=== PATIENT | female | born 1960 | race Caucasian/White ===

== ENCOUNTER 2017-06-06 10:42 | Emergency (ER) | payer BC ==
[2017-06-06 11:41] VITALS: BP 116/65
--- NOTE | 2017-06-06 12:05 | UC ---
Upper Extremity HPI - HPI Summary HPI Summary: pain left ribs x 3 weeks s/p left shoulder RC surgery 3 weeks ago has been having left side rib pain since, increase pain with movement, and taking a deep breath no know injury no fever, no chills, no sob - History of Current Complaint Chief Complaint: UCGeneralIllness Stated Complaint: LFT SIDE RIB AREA PAIN Time Seen by Provider: 06/06/17 11:35 Hx Obtained From: Patient ?: No Onset/Duration: Gradual Onset, Lasting Weeks - 3, Still Present Severity Initially: Moderate Severity Currently: Moderate Pain Intensity: 8 Location Of Pain: Is Discrete @ - left side ribs Character: Aching Aggravating Factor(s): Movement, Lifting, Flexion, Extension Alleviating Factor(s): Nothing Associated Signs And Symptoms: Negative: Swelling, Redness, Bruising, Fever, Weakness, Numbness/Tingling - Allergies/Home Medications Allergies/Adverse Reactions: Allergies Allergy/AdvReac Type Severity Reaction Status Date / Time Penicillins Allergy Vomiting Verified 06/06/17 11:33 Home Medications: Home Medications Cholecalciferol TAB* [Vitamin D TAB*] 50,000 units PO WEEKLY 06/06/17 [History Confirmed 06/06/17] Depression Medication 100 mg PO DAILY 06/06/17 [History] Lisinopril TAB* [Prinivil TAB*] 10 mg PO DAILY 06/06/17 [History Confirmed 06/06] Pravastatin (NF) [Pravachol (NF)] 10 mg PO DAILY 06/06/17 [History Confirmed 04/25] Sertraline* [Zoloft*] 100 mg PO DAILY 06/06/17 [History Confirmed 06/06/17] PMH/Surg Hx/FS Hx/Imm Hx Cardiovascular History: Hypertension - Surgical History Surgical History: Yes Surgery Procedure, Year, and Place: L RCT repair. back 2010. L TKA. [facility]. hernia - Family History Known Family History: Positive: Hypertension - Social History Alcohol Use: None Substance Use Type: None Smoking Status (MU): Never Smoked Tobacco Review of Systems Constitutional: Negative Skin: Negative Eyes: Negative ENT: Negative Respiratory: Negative Is Patient Immunocompromised?: No All Other Systems Reviewed And Are Negative: Yes Physical Exam Triage Information Reviewed: Yes Appearance: Well-Appearing, Pain Distress, Obese Vital Signs: Initial Vital Signs Temp 98.5 F 06/06/17 11:35 Pulse 65 06/06/17 11:35 Resp 20 06/06/17 11:35 BP 116/65 06/06/17 11:35 Pulse Ox 98 06/06/17 11:35 Vital Signs Reviewed: Yes Eyes: Positive: Conjunctiva Clear ENT: Positive: Normal ENT inspection, Hearing grossly normal, Pharynx normal Neck: Positive: Supple, Nontender, No Lymphadenopathy Respiratory: Positive: Chest non-tender, Lungs clear, Normal breath sounds Cardiovascular: Positive: RRR, No Murmur, Pulses Normal Bowel Sounds: Positive: Present Musculoskeletal: Positive: Other: - left side ribs : no swelling , no erythema or bruising , + tenderenss, pain with movementi Upper Extremity Course/Dx - Differential Dx/Diagnosis Provider Diagnoses: left side rib pain Discharge - Discharge Plan Condition: Stable Disposition: HOME Prescriptions: Naproxen [Naproxen 500 mg] 500 mg PO BID #20 tab Patient Education Materials: Muscle Strain (DC), Rib Contusion (ED) Referrals: Leonel Jackson NP [Primary Care Provider] - 2 Weeks
--- NOTE | 2017-06-06 12:12 | RAD ---
Indication: Left-sided chest pain. 3 views of the left chest including dual energy PA views demonstrate limited evaluation of the lower limits due to body habitus. No definite fracture of the visualized ribs is noted. No pneumothorax is noted. IMPRESSION: No definite fractures identified. The study is limited due to patient's body habitus especially of the lower ribs.
== END 2017-06-06 12:33 | disposition home or self-care (01) ==
LOC: UCCORT 10:42
DX: R07.81 Pleurodynia (principal); Z88.0 Allergy status to penicillin; I10 Essential (primary) hypertension
CPT/HCPCS: 99212; G0463

== ENCOUNTER 2017-09-04 11:23 | Emergency (ER) | payer SELFPAY ==
[2017-09-04 11:35] VITALS: BP 134/82
[2017-09-04] MEDS ORDERED: Acetaminophen TAB* 325 MG PO ONE (11:43)
--- NOTE | 2017-09-04 11:43 | UC ---
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 she is c/o pain over the elbow and notes it goe down the arm when she moved the elbow. she denies numd/tingling and weakness. - History of Current Complaint Stated Complaint: WC/LEFT ELBOW COMP Time Seen by Provider: 09/04/17 11:30 Hx Obtained From: Patient Onset/Duration: Sudden Onset Aggravating Factor(s): Movement Alleviating Factor(s): Nothing - Risk Factors Septic Arthritis Risk Factor: Negative - Allergies/Home Medications Allergies/Adverse Reactions: Allergies Allergy/AdvReac Type Severity Reaction Status Date / Time Penicillins Allergy Vomiting Verified 06/06/17 11:33 Home Medications: Home Medications quiNIDine SULFATE TAB* 100 mg PO DAILY 09/04/17 [History Confirmed 09/04/17] PMH/Surg Hx/FS Hx/Imm Hx Endocrine History: Dyslipidemia Cardiovascular History: Hypertension Psychological History: Depression - Surgical History Surgical History: Yes Surgery Procedure, Year, and Place: L RCT repair. back 2010. L TKA. [place]. hernia - Family History Known Family History: Positive: Hypertension - Social History Occupation: Employed Full-time Lives: With Family Alcohol Use: None Substance Use Type: None Smoking Status (MU): Never Smoked Tobacco - Immunization History Vaccination Up to Date: Yes Review of Systems Constitutional: Negative Skin: Negative Eyes: Negative ENT: Negative Respiratory: Negative Cardiovascular: Negative Gastrointestinal: Negative Genitourinary: Negative Motor: Negative Neurovascular: Negative Musculoskeletal: Other: - pain over tip of left elbow Neurological: Negative Psychological: Negative Is Patient Immunocompromised?: No All Other Systems Reviewed And Are Negative: Yes Physical Exam Triage Information Reviewed: Yes Appearance: Well-Appearing Vital Signs Reviewed: Yes Eyes: Positive: Conjunctiva Clear ENT: Positive: Normal ENT inspection Neck: Positive: Supple Respiratory: Positive: Lungs clear, Normal breath sounds Cardiovascular: Positive: RRR, No Murmur Abdomen Description: Positive: Nontender, No Organomegaly, Soft Bowel Sounds: Positive: Present Musculoskeletal: Positive: Other: - LUE: slight bruising with a small superficial abrasion over the olecranon process that is tender. rest of LUE unremarkable. LUE has full s/v/m function. Neurological: Positive: Alert Psychological: Positive: Age Appropriate Behavior Skin Exam: Normal Diagnostics - Radiology No standard instances Xray Interpretation: No Acute Changes Radiology Interpretation Completed By: Radiologist - L elbow Upper Extremity Course/Dx - Course Course Of Treatment: no concern for infection. no fx or dislocation - Differential Dx/Diagnosis Provider Diagnoses: contusion left elbow. superficial abrasion left elbow Discharge - Sign-Out/Discharge Documenting (check all that apply): Discharge/Admit/Transfer - Discharge Plan Condition: Stable Disposition: HOME Patient Education Materials: Contusion in Adults (ED), Abrasion (ED) Forms: *Work Release Referrals: Leonel Jackson NP [Primary Care Provider] - If Needed - Billing Disposition and Condition Condition: STABLE Disposition: HOME
--- NOTE | 2017-09-04 12:13 | RAD ---
INDICATION: Posterior LEFT elbow pain following injury today. COMPARISON: May 13, 2015 TECHNIQUE: AP, lateral, and oblique views LEFT elbow. REPORT: Normal articular alignment. Negative for fat pad displacement to indicate joint effusion. No cortical disruption or suspicious trabecular irregularity to suggest fracture. Small chronic enthesophyte at the lateral epicondyles. Unremarkable soft tissue contours accounting for body habitus. IMPRESSION: 1. Negative for joint effusion, fracture, or malalignment. 2. Stigmata of chronic lateral epicondylitis.
== END 2017-09-04 12:23 | disposition home or self-care (01) ==
LOC: UCCORT 11:23
DX: S50.312A Abrasion of left elbow, initial encounter (principal); W22.03XA Walked into furniture, initial encounter; Y93.89 Activity, other specified; Y92.9 Unspecified place or not applicable; Z88.0 Allergy status to penicillin; I10 Essential (primary) hypertension
CPT/HCPCS: 99212; A9270-GY; G0463

== ENCOUNTER 2019-02-27 12:07 | Emergency (ER) | payer BC ==
--- OUTSIDE RECORDS SUMMARY | 2019-02-27 12:25 | XMS REPORT | Continuity of Care Document ---
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 Onset: 10/22/2017 tendon(s) of the rotator cuff of right shoulder, subsequent encounter Shoulder joint pain Dwight Danielle M.D. Onset: 10/08/2017 Full thickness rotator cuff tear Dwight Danielle M.D. Onset: 05/02/2017 Adhesive capsulitis of shoulder Dwight Danielle M.D. Onset: 03/21/2017 Disorder of shoulder Dwight Danielle M.D. Onset: 12/17/2016 Localized, primary osteoarthritis Gayle Benedict PA Onset: 02/02/2016 Social History Type Date Description Comments Sex Unknown Tobacco Use Start: Unknown Never Smoked Cigarettes ETOH Use Denies alcohol use Tobacco Use Start: Unknown Patient has never smoked Recreational Drug Use Never Used Drugs Smoking Status Reviewed: 02/19/19 Patient has never smoked Allergies, Adverse Reactions, Alerts Active Allergies Reaction Severity Comments Date Penicillin nausea 04/04/2012 Medications Active Medications SIG Qnty Indications Ordering Provider Date Quetiapine Fumarate 1 tab by mouth Unknown once daily 100mg Tablets Sertraline HCL 1 tab by mouth Zehra Jackson 100mg once daily SAÚL Barrera Tablets Pravastatin Sodium 1 by mouth every Unknown 20mg day Tablets Desonide as directed prn Unknown 0.05% Lotion Proventil HFA as directed prn Unknown 108(90Base) mcg/Act Aerosol Omeprazole Take One Capsule Unknown 20mg By Mouth Twice A Capsules DR Day Lisinopril-Hydrochlor 1 by mouth every Unknown othiazide day 20-25mg Tablets Vitamin D Take One Capsule Unknown (Ergocalciferol) By Mouth Every 1.25mg Week (66305 Ut) Capsules Medications Administered in Office Medication SIG Qnty Indications Ordering Provider Date Euflexxa 2mL prefilled syringe Joana Delcid MD 02/19/2019 Injection Depomedrol 40mg/1cc Joana eDlcid MD 02/05/2019 (methylprednisolone acetate) Injection Depomedrol 40mg/1cc Joana Delcid MD 12/04/2018 (methylprednisolone acetate) Injection Depomedrol 40mg/1cc Joana Delcid MD 08/27/2018 (methylprednisolone acetate) Injection Methylprednisolone acetate Skyla Jj 10/19/2016 (Depomedrol) 80mg injection RPAC Injection Euflexxa 2mL prefilled syringe Gayle Benedict PA 02/17/2016 Injection Euflexxa 2mL prefilled syringe Gayle Benedict PA 02/10/2016 Injection Euflexxa 2mL prefilled syringe Gayle Benedict PA 02/02/2016 Injection Immunizations Description No Information Available Vital Signs Date Vital Result Comment 02/19/2019 2:02pm BP Systolic Sitting Left Arm 121 mmHg BP Diastolic Sitting Left Arm 70 mmHg Heart Rate 64 /min 02/05/2019 2:07pm BP Systolic Sitting Left Arm 139 mmHg BP Diastolic Sitting Left Arm 88 mmHg Heart Rate 68 /min Results Description No Information Available Procedures Date Code Description Status 02/19/2019 Asp./Injection major joint Completed 02/05/2019 Asp./Injection major joint Completed 12/04/2018 60687 X-Ray Knee Complete W/Obliques & Tunnel And/Or Standing Completed Views 12/04/2018 Asp./Injection major joint Completed 10/23/2018 45824 Radiology, Knee 3 Views Completed 08/27/2018 Asp./Injection major joint Completed Medical Devices Description No Information Available Encounters Type Date Location Provider Dx Diagnosis Office Visit 02/19/2019 Orthopaedic Office Joana Delcid, M17.0 Bilateral primary 2:15p osteoarthritis of knee Office Visit 02/05/2019 Orthopaedic Office Joana Delcid, M17.0 Bilateral primary 2:00p osteoarthritis of knee M75.121 Complete rotatr-cuff tear/ruptr of r shoulder, not trauma Office Visit 12/04/2018 2:15p [facility] Farhana M75.41 Impingement Office MD Joana syndrome of right shoulder M17.0 Bilateral primary osteoarthritis of knee M17.11 Unilateral primary osteoarthritis, right knee Office Visit 10/23/2018 2:15p Ania Delcid M75.41 Impingement Office MD Joana syndrome of right shoulder M19.011 Primary osteoarthritis, right shoulder M75.121 Complete rotatr-cuff tear/ruptr of r shoulder, not trauma M25.562 Pain in left knee Office Visit 08/27/2018 [facility] M75.121 Complete 1:30p Office MD Joana rotatr-cuff tear/ruptr of r shoulder, not trauma M75.41 Impingement syndrome of right shoulder M19.011 Primary osteoarthritis, right shoulder X50.9xxA Other and unspecified ovrexrtn or strnous move/pstr, init Assessments Date Code Description Provider 02/19/2019 M17.0 Bilateral primary osteoarthritis of knee Joana Delcid MD 02/05/2019 M17.0 Bilateral primary osteoarthritis of knee Joana Delcid MD 02/05/2019 M75.121 Complete rotator cuff tear or rupture of right Joana Delcid MD shoulder, not 12/04/2018 M75.41 Impingement syndrome of right shoulder Joana Delcid MD 12/04/2018 M17.0 Bilateral primary osteoarthritis of knee Joana Delcid MD 12/04/2018 M17.11 Unilateral primary osteoarthritis, right knee Joana Delcid MD 10/23/2018 M75.41 Impingement syndrome of right shoulder Joana Delcid MD 10/23/2018 M19.011 Primary osteoarthritis, right shoulder Joana Delcid MD 10/23/2018 M75.121 Complete rotator cuff tear or rupture of right Joana Delcid MD shoulder, not 10/23/2018 M25.562 Pain in left knee Joana Delcid MD 08/27/2018 M75.121 Complete rotator cuff tear or rupture of right Joana Delcid MD shoulder, not 08/27/2018 M75.41 Impingement syndrome of right shoulder Joana Delcid MD 08/27/2018 M19.011 Primary osteoarthritis, right shoulder Joana Delcid MD 08/27/2018 X50.9xxA Other and unspecified ovrexrtn or strnous Joana Delcid MD move/pstr, init Plan of Treatment Future Appointment(s):03/04/2019 2:15 pm - Joana Delcid MD at [facility]opa[facility] [id number]/26/2019 2:15 pm - Joana Delcid MD at [facility] [id number]/19/2019 2:15 pm - Joana Delcid MD at [facility] [id number]/19/2019 - Joana Delcid, MDM17.0 Bilateral primary osteoarthritis of knee Functional Status Functional Condition Comment Date Status Glasses Active Mental Status Description No Information Available Referrals Description No Information Available
--- OUTSIDE RECORDS SUMMARY | 2019-02-27 12:25 | XMS REPORT | Continuity of Care Document ---
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 Problems Active Problems Provider Date Benign neoplasm [...] Use Never Used Drugs Smoking Status Reviewed: 02/26/19 Patient has never smoked Allergies, Adverse Reactions, [...] Unknown (Ergocalciferol) By Mouth Every 1.25mg Week (69967 Ut) Capsules Medications Administered in Office Medication SIG Qnty Indications Ordering Provider Date Euflexxa 2mL prefilled syringe Joana Delcid MD 02/26/2019 Injection Euflexxa 2mL prefilled syringe Joana Delcid MD 02/19/2019 Injection Depomedrol 40mg/1cc Joana Delcid MD 02/05/2019 (methylprednisolone acetate) Injection Depomedrol 40mg/1cc Joana Delcid MD 12/04/2018 (methylprednisolone acetate) Injection Depomedrol 40mg/1cc Joana Delcid MD 08/27/2018 (methylprednisolone acetate) Injection Methylprednisolone acetate Skyla Jj, 10/19/2016 (Depomedrol) 80mg injection RPAC Injection Euflexxa 2mL prefilled syringe Gayle Benedict PA 02/17/2016 Injection Euflexxa 2mL prefilled syringe Gayle Benedict PA 02/10/2016 Injection Euflexxa 2mL prefilled syringe Gayle Benedict PA 02/02/2016 Injection Immunizations Description No Information Available Vital Signs Date Vital Result Comment 02/26/2019 2:07pm BP Systolic Sitting Left Arm 135 mmHg BP Diastolic Sitting Left Arm 71 mmHg Heart Rate 71 /min 02/19/2019 2:02pm BP Systolic Sitting Left Arm 121 mmHg BP Diastolic Sitting Left Arm 70 mmHg Heart Rate 64 /min Results Description No Information Available Procedures Date Code Description Status 02/26/2019 Asp./Injection major joint Completed 02/19/2019 Asp./Injection major joint Completed 02/05/2019 Asp./Injection major joint Completed 12/04/2018 73243 X-Ray Knee Complete W/Obliques & Tunnel And/Or Standing Completed Views 12/04/2018 Asp./Injection major joint Completed 10/23/2018 05698 Radiology, Knee 3 Views Completed 08/27/2018 23081 Asp./Injection major joint Completed Medical Devices Description No Information Available Encounters Type Date Location Provider Dx Diagnosis Office Visit 02/26/2019 Orthopaedic Office Joana Delcid, M17.0 Bilateral primary 2:15p MD osteoarthritis of knee Office Visit 02/19/2019 Orthopaedic Office Joana Delcid, M17.0 Bilateral primary 2:15p osteoarthritis of knee Office Visit 02/05/2019 Orthopaedic Office Joana Delcid, M17.0 Bilateral primary 2:00p MD osteoarthritis of knee M75.121 Complete rotatr-cuff tear/ruptr [...] move/pstr, init Assessments Date Code Description Provider 02/26/2019 M17.0 Bilateral primary osteoarthritis of knee Joana Delcid MD 02/19/2019 M17.0 Bilateral primary osteoarthritis of knee Joana Delcid MD 02/05/2019 M17.0 Bilateral primary osteoarthritis of knee Joana Delcid MD 02/05/2019 M75.121 Complete rotator cuff tear or rupture of right Joana Delcdi MD shoulder, not 12/04/2018 M75.41 Impingement syndrome [...] MD move/pstr, init Plan of Treatment Future Appointment(s):03/19/2019 2:15 pm - Joana Delcid MD at Orthopaedic Office Functional Status Functional Condition Comment Date Status Glasses Active Mental Status Description No Information Available Referrals Description No Information Available
--- OUTSIDE RECORDS SUMMARY | 2019-02-27 12:25 | XMS REPORT | Continuity of Care Document ---
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 Problems Active Problems Provider Date Benign neoplasm [...] Use Never Used Drugs Smoking Status Reviewed: 02/05/19 Patient has never smoked Allergies, Adverse Reactions, [...] Unknown (Ergocalciferol) By Mouth Every 1.25mg Week (30538 Ut) Capsules Medications Administered in Office Medication SIG Qnty Indications Ordering Provider Date Depomedrol 40mg/1cc Joana Delcid MD 02/05/2019 (methylprednisolone acetate) Injection Depomedrol 40mg/1cc Joana Delcid MD 12/04/2018 (methylprednisolone acetate) Injection Depomedrol 40mg/1cc Joana Delcid MD 08/27/2018 (methylprednisolone acetate) Injection Methylprednisolone acetate Skyla Jj 10/19/2016 (Depomedrol) 80mg injection [facility] Injection Euflexxa 2mL prefilled syringe Gayle Benedict PA 02/17/2016 Injection Euflexxa 2mL prefilled syringe Gayle Benedict PA 02/10/2016 Injection Euflexxa 2mL prefilled syringe Gayle Benedict PA 02/02/2016 Injection Immunizations Description No Information Available Vital Signs Date Vital Result Comment 02/05/2019 2:07pm BP Systolic Sitting Left Arm 139 mmHg BP Diastolic Sitting Left Arm 88 mmHg Heart Rate 68 /min 12/04/2018 2:05pm BP Systolic 106 mmHg BP Diastolic 72 mmHg Body Temperature 97.1 F Heart Rate 62 /min Height 65 inches 5'5" Weight 279.00 lb BMI (Body Mass Index) 46.4 kg/m2 BSA (Body Surface Area) 2.28 m2 Leander body weight in kilograms 57 kg O2 % BldC Oximetry 96 % Results Description No Information Available Procedures Date Code Description Status 12/04/2018 76609 X-Ray Knee Complete W/Obliques & Tunnel And/Or Standing Completed Views 12/04/2018 Asp./Injection major joint Completed 10/23/2018 66068 Radiology, Knee 3 Views Completed 08/27/2018 Asp./Injection major joint Completed Medical Devices Description No Information Available Encounters Type Date Location Provider Dx Diagnosis Office Visit 12/04/2018 Orthopaedic Office Joana Delcid, M75.41 Impingement 2:15p syndrome of right shoulder M17.0 Bilateral primary osteoarthritis of knee M17.11 Unilateral primary osteoarthritis, right knee Office Visit 10/23/2018 2:15p Orthopaedic Farhana M75.41 Impingement Office MD [...] move/pstr, init Assessments Date Code Description Provider 02/05/2019 M17.0 Bilateral primary osteoarthritis of knee [...] Delcid MD move/pstr, init Plan of Treatment 02/05/2019 - Joana Delcid, MDM17.0 Bilateral primary osteoarthritis of kneeM75.121 Complete rotator cuff tear or rupture of right shoulder, notNew Therapy:Physical/Occupational Therapy Functional Status Functional Condition Comment Date Status Glasses Active Mental Status Description No Information Available Referrals Description No Information Available
[2019-02-27 12:49] VITALS: BP 114/59
--- NOTE | 2019-02-27 13:36 | UC ---
Back Pain HPI - HPI Summary HPI Summary: Patient is a 58yo female presenting with for "severe lower back pain" x6 days. Patient states the back pain is 10/10 when lying down at night and she cannot sleep. States it its worse with movement while lying down as well. States better when sitting, standing, and ambulating but still rates pain 7/10. Patient states pain is in lower middle back and radiate outward to both sides. Denies radiating up or down. Denies incontinence. Denies fevers. Notes chills at times. Denies urinary symptoms. Denies n/v. Denies numbness and tingling. Patient notes disc surgery in lumbar spine back in 2010 with screws put in. States she took a flexeril yesterday without relief but that "it was an old pill so maybe it just isn't good." - History of Current Complaint Chief Complaint: UCBackPain Stated Complaint: LOWER BACK PAIN Hx Obtained From: Patient Onset/Duration: Gradual Onset, Lasting Days Severity Initially: Mild Severity Currently: Moderate Pain Intensity: 6 Pain Scale Used: 0-10 Numeric - Allergies/Home Medications Allergies/Adverse Reactions: Allergies Allergy/AdvReac Type Severity Reaction Status Date / Time Penicillins Allergy Vomiting Verified 02/27/19 12:49 PMH/Surg Hx/FS Hx/Imm Hx Endocrine History: Dyslipidemia Cardiovascular History: Hypertension - Surgical History Surgical History: Yes Surgery Procedure, Year, and Place: L RCT repair. back 2010. L TKA. [place]. hernia - Family History Known Family History: Positive: Hypertension - Social History Occupation: Employed Full-time Lives: With Family Alcohol Use: None Substance Use Type: None Smoking Status (MU): Never Smoked Tobacco - Immunization History Vaccination Up to Date: Yes Review of Systems All Other Systems Reviewed And Are Negative: No Constitutional: Positive: Chills Respiratory: Positive: Negative Cardiovascular: Positive: Negative Gastrointestinal: Positive: Negative Genitourinary: Positive: Negative Neurovascular: Positive: Negative Musculoskeletal: Positive: Arthralgia - lower back. Negative: Decreased ROM, Edema Neurological: Positive: Negative. Negative: Weakness, Paresthesia, Numbness Physical Exam Triage Information Reviewed: Yes Appearance: Well-Appearing, No Pain Distress, Well-Nourished Vital Signs: Initial Vital Signs Temp 98.4 F 02/27/19 12:40 Pulse 60 02/27/19 12:40 Resp 18 02/27/19 12:40 BP 114/59 02/27/19 12:40 Pulse Ox 98 02/27/19 12:40 Lab Results 02/27/19 Range/Units 13:44 POC Urine Color Yellow POC Urine Clarity Clear POC Urine pH 5.5 (5-9) POC Ur Specif [place] 1.020 (1.010-1.030) POC Urine Protein Negative (Negative) POC Ur Glucose (UA) Negative (Negative) POC Urine Ketones Negative (Negative) POC Urine Blood Negative (Negative) POC Urine Nitrite Negative (Negative) POC Urine Bilirubin Negative (Negative) POC Urine Urobilinogen 0.2 (Negative) POC U Leukocyte [place] Trace A (Negative) Vital Signs Reviewed: Yes Eyes: Positive: Conjunctiva Clear ENT: Positive: Hearing grossly normal Neck: Positive: Supple Respiratory Exam: Normal Respiratory: Positive: Lungs clear, Normal breath sounds, No respiratory distress Cardiovascular Exam: Normal Cardiovascular: Positive: RRR Abdomen Description: Negative: CVA Tenderness (R), CVA Tenderness (L) Musculoskeletal: Positive: Strength Intact, ROM Intact, No Edema, Other: - midline lumbar and lumbar paraspinous muscle tenderness Neurological Exam: Other - sensation grossly intact Neurological: Positive: Alert Psychological: Positive: Age Appropriate Behavior Skin Exam: Normal Diagnostics - Radiology lumbarsacral Radiology Interpretation Completed By: Radiologist Summary of Radiographic Findings: FINDINGS: The patient is status post laminectomy and posterior spinal fusion at the L4-L5 level with pedicle screws. The surgical hardware appears intact. There is very mild anterolisthesis of L5 relative to S1 of 3 mm which is unchanged. There is mild to moderate diffuse degenerative disc disease. IMPRESSION: STATUS POST POSTERIOR SPINAL FUSION AT THE L4-L5 LEVEL, UNCHANGED. Back Pain Course/Dx - Course Course Of Treatment: Discussed with patient unchanged radiographs of lumbar spine with DJD noted. UA was positive only for trace leuks without urinary symptoms. I discussed symptomatic treatment of acute low back pain with patient including flexeril at night. Discussed side effect of drowsiness and not to drive or operate machinery while taking it. Instructed to follow up with her pcp or ortho doc if symptoms persist. Patient voiced understanding and agreed with treatment plan. - Differential Dx/Diagnosis Differential Diagnosis/HQI/PQRI: Herniated Disc, Strain, Sprain Provider Diagnosis: Acute lumbar back pain Discharge ED - Sign-Out/Discharge Documenting (check all that apply): Patient Departure All imaging exams completed and their final reports reviewed: Yes - Discharge Plan Condition: Stable Disposition: HOME Prescriptions: Cyclobenzaprine TAB* [Flexeril 10 MG TAB*] 10 mg PO BEDTIME #10 tab Patient Education Materials: Acute Low Back Pain (ED), Degenerative Disc Disease (ED), Lower Back Exercises (ED) Referrals: Leonel Jackson NP [Primary Care Provider] - If Needed Fernando Marks MD [Medical Doctor] - If Needed Additional Instructions: As discussed, your xrays reveals degenerative disc disease, but no fractures. Take 10mg of Flexeril before bedtime. Rest, apply heat, and take ibuprofen as directed to help alleviate pain symptoms. Simple stretches may also help with the pain. Follow up with your PCP or orthopedic doctor for further evaluation if your pain does not improve within 7 days. - Billing Disposition and Condition Condition: STABLE Disposition: Home
== END 2019-02-27 14:21 | disposition home or self-care (01) ==
LOC: UCCORT 12:07
DX: M54.5 Low back pain (principal); M47.896 Other spondylosis, lumbar region; I10 Essential (primary) hypertension; Z98.1 Arthrodesis status; Z88.0 Allergy status to penicillin
CPT/HCPCS: 72110; 81003; 87086; 99212; G0463

== ENCOUNTER 2022-01-11 12:45 | Inpatient (IN) ==
[~2022-01-11 12:45] MED LIST: Buffered Lidocaine 1% SYRIN 1 ml INTRADERM ONE; Famotidine IV 10 MG/ML 2 ml VIAL (20 mg) IV ONE; Lactated Ringers 1000 ml BAG 1,000 ML IV SCH; Lidocaine 2% PF 5 ML VIAL ONE; Propofol 10 MG/ML 20 ML BTL ONE
[2022-01-11] MEDS ORDERED: Famotidine IV 10 MG/ML 2 ml VIAL (20 mg) ONE (12:59)
[2022-01-11] MEDS ORDERED: ceFAZolin 2 GM in NS PREMIX 2 GM/100 ML BAG IVPB ONE (13:12)
[2022-01-11] MEDS ORDERED: fentaNYL 100 mcg/2 ml 50 MCG/ML VIAL ONE ×3 (14:20→17:59)
[2022-01-11] MEDS ORDERED: Midazolam 2 mg/2 ml VIAL 1 mg/ml 2 ml VIAL (2 mg) ONE (14:20)
[2022-01-11] MEDS ORDERED: ROPIVACAINE 5 MG/ML 30 ML BTL (0.5%) ONE ×2 (14:22→14:28)
[2022-01-11] MEDS ORDERED: Ketamine HCL 50 mg/ml 10 ml VIAL (500 MG) ONE (14:26)
[2022-01-11] MEDS ORDERED: fentaNYL 250 mcg/5 ml 50 MCG/ML 5 ml VIAL (250 MCG) ONE (14:26)
[2022-01-11] MEDS ORDERED: Rocuronium 50 mg VIAL 10 mg/ml 5 ml VIAL (50 mg) ONE ×2 (14:26→16:12)
[2022-01-11] MEDS ORDERED: Ondansetron 4 mg VIAL 2 MG/ML 2 ml VIAL IV PRN ×2 (15:16→15:31)
[2022-01-11] MEDS ORDERED: Naloxone 0.4 mg VIAL 0.4 mg/ml 1 ml VIAL IV PRN (15:16)
[2022-01-11] MEDS ORDERED: Ondansetron ODT 4 mg TAB 4 MG TAB PO PRN (15:31)
[2022-01-11] MEDS ORDERED: Morphine 2 MG/ML SYRINGE IV PRN (15:31)
[2022-01-11] MEDS ORDERED: Lactulose 30 ml UDC PO PRN (15:31)
[2022-01-11] MEDS ORDERED: Magnesium Hydroxide LIQ 30 ML UDC PO PRN (15:31)
[2022-01-11] MEDS ORDERED: Dexamethasone IV 4 MG/ML VIAL 1 ml VIAL ONE (15:33)
[2022-01-11] MEDS ORDERED: Ondansetron 4 mg VIAL 2 MG/ML 2 ml VIAL ONE (15:33)
[2022-01-11] MEDS ORDERED: Labetalol IV 5 MG/ML 20 ml VIAL ONE (15:38)
[2022-01-11] MEDS ORDERED: Acetaminophen IV 1 GM/100ML 1,000 MG/100 ML BAG IV ONE (15:42)
[2022-01-11] MEDS ORDERED: HYDROmorphone 0.5 MG/0.5 ML SYRINGE ONE (15:51)
[2022-01-11] MEDS ORDERED: Lactated Ringers 1000 ml BAG 1,000 ML IV SCH (16:00)
[2022-01-11] MEDS: fentaNYL 100 mcg/2 ml 50 MCG/ML VIAL IV PRN ×4 (17:37→18:27)
[2022-01-11] MEDS ORDERED: HYDROmorphone 1 MG/1 ML SYRINGE ONE (18:12)
[2022-01-11] MEDS: HYDROmorphone 1 MG/1 ML SYRINGE IV PRN ×2 (18:15→18:25)
[2022-01-11] MEDS: Magnesium Hydroxide LIQ 30 ML UDC PO SCH (22:15)
[2022-01-11 23:03] LABS: Calcium 8.5 mg/dL (8.6-10.3); Potassium 4.1 mmol/L (3.5-5.0)
[2022-01-11 23:09] LABS: eGFR CKD-EPI 86.9 (>60)
[2022-01-11] MEDS: Clindamycin 600 MG/D5W BAG 600 MG/50 ML BAG IV SCH (23:56)
[2022-01-12 08:01] LABS: Hematocrit 31 % (35-47); Hemoglobin 10.5 g/dL (12.0-16.0); Mean Platelet Volume 8.6 fL (7.4-10.4); Platelet Count 318 10^3/uL (150-450)
[2022-01-12 08:26] LABS: Calcium 8.6 mg/dL (8.6-10.3); Potassium 4.3 mmol/L (3.5-5.0); eGFR CKD-EPI 99.6 (>60)
[2022-01-12] MEDS ORDERED: Vitamin THERAPEUTIC TAB PO SCH (09:00)
[2022-01-12] MEDS: Clindamycin 600 MG/D5W BAG 600 MG/50 ML BAG IV SCH ×2 (09:26→15:11)
[2022-01-12] MEDS: Magnesium Hydroxide LIQ 30 ML UDC PO SCH (09:27)
[2022-01-12 11:00] VITALS: BP 136/78
== END 2022-01-12 16:45 | disposition home or self-care (01) | DRG 302 ==
LOC: INTOOBSV 12:45 → AA 12:45 → SSU 15:31
PROVIDERS: ADMIT Orthopaedic Surgery Adult Reconstructive Orthopaedic Surgery; ATTEND Orthopaedic Surgery Adult Reconstructive Orthopaedic Surgery

== ENCOUNTER 2023-10-28 05:42 | Observation (INO) ==
[2023-10-25] MEDS: Acetaminophen IV 1 GM/100ML 1,000 MG/100 ML BAG IV ONE (14:15)
[2023-10-25] MEDS: Scopolamine 1 mg/72hr PATCH TRANSDERM ONE (14:15)
[2023-10-25] MEDS: Buffered Lidocaine 1% SYRIN 1 ml INTRADERM ONE (14:15)
[~2023-10-28 05:42] MED LIST changes: -Buffered Lidocaine 1% SYRIN 1 ml INTRADERM ONE; -Famotidine IV 10 MG/ML 2 ml VIAL (20 mg) IV ONE; -Lactated Ringers 1000 ml BAG 1,000 ML IV SCH; -Lidocaine 2% PF 5 ML VIAL ONE; +Metoclopramide 5 MG/ML VIAL (10 mg) IV PRN; +NS 0.45% 1000 ml BAG 1,000 ML IV SCH; +Naloxone 0.4 mg VIAL 0.4 mg/ml 1 ml VIAL IV PRN; +Ondansetron 4 mg VIAL 2 MG/ML 2 ml VIAL IV PRN; -Propofol 10 MG/ML 20 ML BTL ONE; +fentaNYL 100 mcg/2 ml 50 MCG/ML VIAL IV PRN
[2023-10-28] MEDS ORDERED: Buffered Lidocaine 1% SYRIN 1 ml ONE (06:13)
[2023-10-28] MEDS ORDERED: ceFAZolin *3* GM in NS PREMIX 3 GM/100 ML BAG IV ONE (06:13)
[2023-10-28] MEDS ORDERED: Tranexamic Acid 1 GM/100ML BAG 2,000 MG/200 ML BAG IV ONE (06:13)
[2023-10-28] MEDS ORDERED: Dexamethasone IV 4 MG/ML VIAL 1 ml VIAL ONE ×2 (06:40→08:45)
[2023-10-28] MEDS ORDERED: ROPIVACAINE 5 MG/ML 30 ML BTL (0.5%) ONE (06:40)
[2023-10-28] MEDS ORDERED: Midazolam 2 mg/2 ml VIAL 1 mg/ml 2 ml VIAL (2 mg) ONE (06:40)
[2023-10-28] MEDS ORDERED: Vancomycin 1,000 MG VIAL ONE (06:45)
[2023-10-28] MEDS ORDERED: Propofol 10 MG/ML 20 ML BTL ONE ×2 (06:54→11:11)
[2023-10-28] MEDS ORDERED: Lidocaine 2% PF 5 ML VIAL ONE (06:54)
[2023-10-28] MEDS ORDERED: fentaNYL 100 mcg/2 ml 50 MCG/ML VIAL ONE ×3 (06:57→09:44)
[2023-10-28] MEDS ORDERED: Phenylephrine IV 10 MG/ML 1 ml VIAL ONE (06:59)
[2023-10-28] MEDS ORDERED: Rocuronium 50 mg VIAL 10 mg/ml 5 ml VIAL (50 mg) ONE ×3 (07:00→09:47)
[2023-10-28] MEDS: Vancomycin 2,000 MG in NS 0.9% 500 ml BAG 500 ML IVPB ONE (07:00)
[2023-10-28] MEDS: Lactated Ringers 1000 ml BAG 1,000 ML IV SCH ×2 (07:01→13:41)
[2023-10-28] MEDS ORDERED: Ondansetron 4 mg VIAL 2 MG/ML 2 ml VIAL ONE (08:45)
[2023-10-28] MEDS ORDERED: Glycopyrrolate IV 0.2 MG/ML 1 ML VIAL ONE (09:10)
[2023-10-28 09:14] LABS: Rapid COVID-19 Molecular Undetected (Undetected)
[2023-10-28] MEDS ORDERED: Sevoflurane BOTTLE ONE (10:06)
[2023-10-28] MEDS ORDERED: Ondansetron 4 mg VIAL 2 MG/ML 2 ml VIAL IV PRN (11:16)
[2023-10-28] MEDS ORDERED: Magnesium Hydroxide LIQ 30 ML UDC PO PRN (11:16)
[2023-10-28] MEDS ORDERED: Ondansetron ODT 4 mg TAB 4 MG TAB PO PRN (11:16)
[2023-10-28] MEDS ORDERED: Lactulose 30 ml UDC PO PRN (11:16)
[2023-10-28] MEDS ORDERED: Morphine 2 MG/ML SYRINGE IV PRN (11:16)
[2023-10-28] MEDS: ceFAZolin 1 GM ADVAN 1 GM in NS 0.9% 50 ML 50 ML IVPB SCH (17:29)
[2023-10-28] MEDS: Magnesium Hydroxide LIQ 30 ML UDC PO SCH (20:11)
[2023-10-29 06:00] LABS: Hematocrit 36.7 % (35-45); Mean Platelet Volume 9.2 fL (7.5-11.2); Platelet Count 314 10^3/uL (150-450)
[2023-10-29 07:03] LABS: Anion Gap 8 mmol/L (2-16); Blood Urea Nitrogen 22 mg/dL (6-24); CO2 Carbon Dioxide 24 mmol/L (22-32); Calcium 8.6 mg/dL (8.6-10.3); Chloride 105 mmol/L (101-111); Glucose 122 mg/dL (70-100); Sodium 137 mmol/L (135-145); eGFR CKD-EPI 97.7 (>60)
[2023-10-29] MEDS: Vitamin THERAPEUTIC TAB PO SCH (08:05)
[2023-10-29 09:43] VITALS: BP 142/72
== END 2023-10-29 12:10 | disposition home or self-care (01) ==
LOC: SSU 05:42 → OR 05:42 → EDSTATUS 07:30
PROVIDERS: ADMIT Orthopaedic Surgery; ATTEND Orthopaedic Surgery